=== PATIENT | male | born 1950 | race Caucasian/White ===

== ENCOUNTER 2017-10-22 08:14 | Emergency (ER) | payer OTHER ==
--- OUTSIDE RECORDS SUMMARY | 2017-10-22 08:16 | XMS REPORT | Clinical Summary ---
:1950 Author Organization [facility] Address [address] [place] [address] Phone Care Team Providers Name Role Phone Unavailable Primary Care Provider Unavailable Allergies No Known Allergies Current Medications Prescription Sig. Disp. Refills Start Date End Date Status insulin glargine Inject 22 Units Active (LANTUS SOLOSTAR) 100 subcutaneously 2 unit/mL (3 mL) InPn (two) times daily 22 units AM; 20 units HS. metoclopramide HCl Take 10 mg by mouth 4 Active (REGLAN) 10 MG tablet (four) times daily after meals and nightly. cyclobenzaprine Take 10 mg by mouth 2 Active (FLEXERIL) 10 MG tablet (two) times daily as needed for Muscle spasms. HYDROcodone-ibuprofen Take 1 tablet by Active (VICOPROFEN) 7.5-200 mg mouth every 12 per tablet (twelve) hours as needed for Pain. Active Problems Not on file Social History Tobacco Use Types Packs/Day Years Used Date Never Smoker Alcohol Use Drinks/Week oz/Week Comments No Sex Assigned at Date Recorded Not on file Last Filed Vital Signs Not on file Plan of Treatment Not on file Results Not on fileafter 10/21/2016
--- OUTSIDE RECORDS SUMMARY | 2017-10-22 08:16 | XMS REPORT | Clinical Summary ---
:1950 Author Organization [facility] Address [address] [place] [address] Care Team Providers Name Role Phone Shaka Lucas MD Primary Care Provider Allergies Active Allergy Reactions Severity Noted Date Comments Metronidazole Other (See Comments) Medium 08/07/2017 seizure Current Medications Prescription Sig. Disp. Refills Start Date End Date Status omeprazole (PriLOSEC) Take 20 mg by Active 20 MG capsule mouth 2 (two) times a day. aspirin (ECOTRIN) 81 Take 81 mg by Active MG enteric coated mouth daily. tablet multivitamin with Take 1 tablet Active iron (ONE DAILY by mouth MULTI-VIT W-MINERAL) daily. tablet insulin GLARGINE Inject 18 07/20/2016 Active (LANTUS SOLOSTAR) 100 Units under unit/mL injection the skin (pen) nightly. For BS >150 mg/dl promethazine Take 25 mg by Active (PHENERGAN) 25 MG mouth every 6 tablet (six) hours as needed for nausea or vomiting. ibuprofen Take 200 mg Active (ADVIL,MOTRIN) 200 MG by mouth tablet every 6 (six) hours as needed for mild pain. gabapentin Take 300 mg Discontinued (NEURONTIN) 300 mg by mouth 2 8 capsule (two) times a day. fentaNYL (DURAGESIC) Place 1 patch Discontinued 25 mcg/hr on the skin 8 every third day. HYDROcodone-acetamino Take 0.5 Discontinued phen (NORCO) 7.5-325 tablets by 8 mg per tablet mouth every 6 (six) hours as needed for moderate pain. zolpidem (AMBIEN) 10 Take 10 mg by Discontinued mg tablet mouth nightly 8 as needed for sleep. meclizine (ANTIVERT) Take 25 mg by Discontinued 25 mg tablet mouth 3 8 (three) times a day as needed for dizziness. cyclobenzaprine Take 10 mg by Discontinued (FLEXERIL) 10 mg mouth 3 8 tablet (three) times a day as needed for muscle spasms. cetirizine (ZyrTEC) 5 Take 5 mg by Discontinued MG tablet mouth daily. 8 megestrol (MEGACE) Take 10 mL 600 mL 0 08/11/2017 400 mg/10 mL (10 mL) (400 mg 8 suspension total) by mouth 2 (two) times a day for 30 days. amoxicillin-pot 08/25/2017 Discontinued clavulanate 8 (AUGMENTIN) 875-125 mg per tablet traMADol (ULTRAM) 50 Take 50 mg by Discontinued mg tablet mouth. 8 NEBIVOLOL Take 5-80 mg Discontinued HCL/VALSARTAN by mouth. 8 (BYVALSON ORAL) amLODIPine (NORVASC) 07/14/2017 Discontinued 5 mg tablet 8 HYDROcodone-acetamino 08/17/2017 Discontinued phen (NORCO) 10-325 8 mg per tablet metOLazone 07/15/2017 Discontinued (ZAROXOLYN) 5 MG 8 tablet ondansetron ODT Does not take 08/19/2017 Discontinued (ZOFRAN-ODT) 8 MG this at home 8 disintegrating tablet cyclobenzaprine Take 10 mg by Discontinued (FLEXERIL) 10 mg mouth 2 (two) 8 tablet times a day. gabapentin Take 1 60 capsule 0 09/08/2017 (NEURONTIN) 100 mg capsule (100 8 capsule mg total) by mouth 2 (two) times a day for 30 days. lactobacillus Take 2 60 each 0 09/09/2017 [id number] capsules by 8 mnosus (BIO K PLUS) mouth daily 50 billion cell for 30 days. capsule capsule valsartan (DIOVAN) 80 Take 1 tablet 30 tablet 0 09/09/2017 MG tablet (80 mg total) 8 by mouth daily for 30 days. QUEtiapine (SEROquel) Take 0.5 09/08/2017 Discontinued 25 MG tablet tablets (12.5 8 mg total) by mouth nightly as needed (insomnia) for up to 30 days. nebivolol (BYSTOLIC) Take 1 tablet 30 tablet 0 09/09/2017 5 MG tablet (5 mg total) 8 by mouth daily for 30 days. docusate (COLACE) 50 Take 5 mL (50 09/09/2017 mg/5 mL liquid mg total) by 8 mouth daily for 30 days. lactulose 20 gram/30 Take 15 mL 09/08/2017 mL solution (10 g total) 8 by mouth daily as needed (constipation ) for up to 30 days. fluconazole Take 1 tablet 7 tablet 0 09/20/2017 (DIFLUCAN) 200 MG (200 mg 8 tablet total) by mouth daily for 7 days. acetaminophen-codeine Take 1 tablet 20 tablet 0 09/19/2017 (TYLENOL WITH CODEINE by mouth 8 #3) 300-30 mg per every 6 (six) tablet hours as needed for moderate pain for up to 20 doses. megestrol (MEGACE) Take 10 mL 300 mL 0 09/19/2017 400 mg/10 mL (40 (400 mg 8 mg/mL) suspension total) by mouth daily for 30 days. Active Problems Problem Noted Date Dehydration 08/31/2017 Acute renal failure 08/07/2017 Encounters Date Type Specialty Care Team Description 09/16/2017 - Emergency General Internal Katlyn Forrest Dehydration ( Primary Dx); 09/19/2017 Medicine Emilia PETTY MD Other elevated white blood cell (WBC) count Anibal Tomlinson MD 09/04/2017 Anesthesia Event General Surgery Rianna Aden MD 09/04/2017 Procedure Pass General Surgery 09/04/2017 Surgery General Surgery Marielle, PORT A CATHETER Isaac Liu MD PLACEMENT RIGHT SUBCLAVIAN WITH FLUROSCOPY 09/03/2017 Procedure Pass General Surgery 08/31/2017 - Hospital Encounter General Internal Nicholas Jernigan, Dehydration (Primary Dx); 09/08/2017 Medicine Altered mental status, unspecified altered mental status type Brittani Lamar MD 08/27/2017 Pre-Admit Testing Pre-Admission Oppermann, Appointment Testing Isaac Liu MD 08/27/2017 Office Visit General Surgery Oppermann, Malignant neoplasm Isaac Liu MD of pancreas, unspecified location of malignancy (Primary Dx) 08/07/2017 - Hospital Encounter General Internal Dalal, Acute renal failure, unspecified acute renal failure type (Primary Dx); 08/11/2017 Medicine Juan Carlos Josh, Dehydration; DO Leukocytosis, unspecified type Sd Pagan MD Mathivanan, Vidya, MD after 10/21/2016 Family History Medical History Relation Name Comments Cancer Father Cancer Mother No Known Problems Sister Relation Name Status Comments Father Mother Sister Alive Social History Tobacco Use Types Packs/Day Years Used Date Never Smoker Smokeless Tobacco: Never Used Chew Alcohol Use Drinks/Week oz/Week Comments No Sex Assigned at Date Recorded Not on file Last Filed Vital Signs Vital Sign Reading Time Taken Blood Pressure 191/97 09/19/2017 12:27 PM SENIOR TECHNICAL RECRUITER Pulse 79 09/19/2017 12:27 PM SENIOR TECHNICAL RECRUITER Temperature 36.4 C (97.6 F) 09/19/2017 12:27 PM SENIOR TECHNICAL RECRUITER Respiratory Rate 17 09/19/2017 12:27 PM SENIOR TECHNICAL RECRUITER Oxygen Saturation 98% 09/19/2017 12:27 PM SENIOR TECHNICAL RECRUITER Inhaled Oxygen Concentration - - Weight 65.3 kg (144 lb) 09/17/2017 1:00 AM SENIOR TECHNICAL RECRUITER Height 162.6 cm (5' 4") 09/17/2017 1:00 AM SENIOR TECHNICAL RECRUITER Body Mass Index 24.72 09/17/2017 1:00 AM SENIOR TECHNICAL RECRUITER Plan of Treatment Health Maintenance Due Date Last Done Comments COLONOSCOPY 2000 ZOSTER VACCINE 2010 PNEUMOCOCCAL POLYSACCHARIDE VACCINE AGE 65 AND OVER 10/13/2015 PNEUMOCOCCAL-13 10/13/2015 INFLUENZA VACCINE 02/10/2018 Implants Implanted Type Area Agriculture Mechanic Device Expiration Model / Identifier Date Serial / Lot Port Accs Vortex Tr Vasclr Sgl Atchd 9.6fr Cath Plastic - [id number] Surgical N/A: N/A ANGIODYNAMICS 05/12/2022 SPAX 16 I / Implanted: 09/04/2017 (Quantity not on file) Implants; INC / Expanders; [id number] Extenders; Surgical Wires Procedures Procedure Name Priority Date/Time Associated Diagnosis Comments MS AN ELECTIVE Routine 09/04/2017 10:48 AM SUPRAGLOTTIC AIRWAY SENIOR TECHNICAL RECRUITER Procedure Note - Rianna Aden MD - 09/04/2017 10:48 AM SENIOR TECHNICAL RECRUITER Airway Date/Time: 09/04/2017 10:32 AM Performed by: RIANNA ADEN Authorized by: RIANNA ADEN Location: OR Urgency: Elective Difficult Airway: No Anesthesiologist: EMILIE MANN Performed by: anesthesiologist Preoxygenated with 100% O2: Yes C-spine Precautions Maintained Throughout: Yes Mask Ventilation: Not attempted Final Airway Type: Supraglottic airway Final LMA: I-Gel LMA Size: 4 Number of Attempts at Approach: 1 ECHOCARDIOGRAM 2D COMPLETE W Routine 08/08/2017 4:25 PM SENIOR TECHNICAL RECRUITER Results for this MMODE SPECTRAL COLOR DOPPLER procedure are in the (14397) results section. after 10/21/2016 Results POC glucose (09/19/2017 12:30 PM)Only the most recent of56 resultswithin the time period is included. Component Value Ref Range POC glucose 119 (H) 65 - 99 mg/dL Comment: RN Notified Meter ID: [id number] Railroad Conductor: Iliana Castillo Specimen Performing Laboratory [facility] DEPARTMENT OF PATHOLOGY AND [facility] MEDICINE [address] [place] [address] Smear review (09/19/2017 6:40 AM)Only the most recent of9 resultswithin the time period is included. Component Value Ref Range Platelet slide review Leonor adequate Anisocytosis Moderate Polychromasia Moderate Schistocytes Occasional Ovalocytes Moderate Specimen Performing Laboratory [facility] DEPARTMENT OF PATHOLOGY AND GENOMIC MEDICINE [address] [place] [phone] Estimated GFR (09/19/2017 6:40 AM)Only the most recent of15 resultswithin the time period is included. Component Value Ref Range GFR Non Af Amer 75 mL/min/1.73 m2 GFR Af Amer >90 mL/min/1.73 m2 Comment: Chronic kidney disease: <60 mL/min/1.73m2 Kidney failure: <15 mL/min/1.73m2 The estimated GFR is calculated from the IDMS-traceable Modification of Diet in Renal Disease Equation. The accuracy of the calculation is poor when the creatinine is normal. Calculated values >90 mL/min/1.73m2 are not reported. This equation has not been validated in children (<18 years), women, the elderly (>70 years), or ethnic groups other than Caucasians and Americans. Specimen Performing Laboratory Plasma specimen [facility] DEPARTMENT OF PATHOLOGY AND [place] [id number] CBC with platelet and differential (09/19/2017 6:40 AM)Only the most recent of16 resultswithin the time period is included. Component Value Ref Range WBC 38.9 (H) 4.5 - 11.0 k/uL RBC 2.83 (L) 4.40 - 6.00 m/uL HGB 8.7 (L) 14.0 - 18.0 g/dL HCT 27.2 (L) 41.0 - 51.0 % MCV 96.1 82.0 - 100.0 fL MCH 30.7 27.0 - 34.0 pg MCHC 32.0 31.0 - 37.0 g/dL RDW - SD 62.1 (H) 37.0 - 55.0 fL MPV 12.5 (H) 6.9 - 11.0 fL Platelet count 163 150 - 400 K/uL Nucleated RBC 0.00 /100 WBC Neutrophils 74.2 (H) 39.0 - 69.0 % Lymphocytes 10.3 (L) 25.0 - 45.0 % Monocytes 5.1 0.0 - 10.0 % Eosinophils 7.8 (H) 0.0 - 5.0 % Basophils 0.4 0.0 - 1.0 % Immature granulocytes 2.2 (H) 0.0 - 1.0 % Specimen Performing Laboratory Blood [facility] DEPARTMENT OF PATHOLOGY AND GENOMIC MEDICINE [address] [place] [address] Ammonia level (09/19/2017 6:40 AM)Only the most recent of2 resultswithin the time period is included. Component Value Ref Range Ammonia 48 16 - 60 umol/L Specimen Performing Laboratory Plasma specimen [facility] DEPARTMENT OF PATHOLOGY AND GENOMIC MEDICINE [address] [place] [address] Basic metabolic panel (09/19/2017 6:40 AM)Only the most recent of11 resultswithin the time period is included. Component Value Ref Range Sodium 146 135 - 148 mEq/L Potassium 3.5 3.5 - 5.0 mEq/L Chloride 114 (H) 98 - 112 mEq/L CO2 17 (L) 24 - 31 mEq/L Anion gap 15 7 - 15 mEq/L Comment: Starting from October , anion gap calculation no longer incorporates potassium. Please note the change. BUN 16 8 - 23 mg/dL Creatinine 1.0 0.7 - 1.2 mg/dL Glucose 124 (H) 65 - 99 mg/dL Calcium 8.3 (L) 8.8 - 10.2 mg/dL Specimen Performing Laboratory Plasma specimen [facility] DEPARTMENT OF PATHOLOGY AND GENOMIC MEDICINE [address] [place] [address] CT Head Wo Contrast (09/17/2017 10:58 AM)Only the most recent of2 resultswithin the time period is included. Specimen Performing Laboratory [facility] [address] [place] [address] Narrative EXAMINATION:CT HEAD WO CONTRAST CT IMAGING WAS PERFORMED WITH ITERATIVE RECONSTRUCTION TECHNIQUE AND/OR AUTOMATED EXPOSURE CONTROL TO REDUCE RADIATION DOSE. CLINICAL HISTORY:confusion COMPARISON:CT brain August 31, 2017. FINDINGS: 1.There is no acute abnormality demonstrated. Specifically there is no hemorrhage, mass effect or acute infarction. 2. There is chronic lacunar infarction in the genu of the internal capsule and garner radiata region on the right. There are otherwise minimal nonspecific cerebral white matter microvascular changes. 3.There is vague cortical hypodensity in the parasagittal left parietal lobe seen on the prior study. This is not present on current examination suggesting a resolved reversible cortical insult. 4.There is mild cerebral cortical volume loss. 5.There are minimal atherosclerotic calcifications in the distal internal carotid arteries. 6.There is mild mucosal thickening/mucus in the ethmoid sinus and to a lesser degree maxillary and sphenoid sinuses. IMPRESSION: Minimal chronic ischemic changes, microvascular changes and volume loss without evidence of an abnormality. A small cortical hypodensity in the parasagittal left parietal lobe seen on the prior study has resolved. There is otherwise no significant interval change. [facility]-[id number] Procedure Note Interface, Radiology Results Incoming - 09/17/2017 11:11 AM SENIOR TECHNICAL RECRUITER EXAMINATION: CT HEAD WO CONTRAST CT IMAGING WAS PERFORMED WITH ITERATIVE RECONSTRUCTION TECHNIQUE AND/OR AUTOMATED EXPOSURE CONTROL TO REDUCE RADIATION DOSE. CLINICAL HISTORY: confusion COMPARISON: CT brain August 31, 2017. FINDINGS: 1. There is no acute abnormality demonstrated. Specifically there is no hemorrhage, mass effect or acute infarction. 2. There is chronic lacunar infarction in the genu of the internal capsule and garner radiata region on the right. There are otherwise minimal nonspecific cerebral white matter microvascular changes. 3. There is vague cortical hypodensity in the parasagittal left parietal lobe seen on the prior study. This is not present on current examination suggesting a resolved reversible cortical insult. 4. There is mild cerebral cortical volume loss. 5. There are minimal atherosclerotic calcifications in the distal internal carotid arteries. 6. There is mild mucosal thickening/mucus in the ethmoid sinus and to a lesser degree maxillary and sphenoid sinuses. IMPRESSION: Minimal chronic ischemic changes, microvascular changes and volume loss without evidence of an abnormality. A small cortical hypodensity in the parasagittal left parietal lobe seen on the prior study has resolved. There is otherwise no significant interval change. [facility]-[id number] Troponin (09/17/2017 7:55 AM)Only the most recent of8 resultswithin the time period is included. Component Value Ref Range Troponin <0.30 0.00 - 0.30 ng/mL Comment: 0.11 - 1.49 ng/mlMay indicate increased risk of acute coronary syndrome. >=1.5 ng/mlConsistent with acute myocardial infarction. The diagnostic value of a single normal or non-diagnostic result is questionable.Serial samples at 2-6 hour intervals are required to rule out acute myocardial injury. Specimen Performing Laboratory Plasma specimen [facility] DEPARTMENT OF PATHOLOGY AND GENOMIC MEDICINE [address] [place] [address] ECG 12 lead (09/17/2017 5:14 AM)Only the most recent of3 resultswithin the time period is included. Component Value Ref Range Ventricular rate 93 Atrial rate 279 QRSD interval 84 QT interval 430 QTC interval 534 P axis 1 81 QRS axis 1 81 T wave axis 80 EKG impression Normal sinus rhythm-T wave abnormality, consider anterior ischemia-Prolonged QT-Abnormal ECG-In automated comparison with ECG of 2017 20:18,-Atrial flutter has replaced Sinus rhythm-T wave inversion more evident in Anterior leads-QT has lengthened- 12: 06:06 PM Specimen Performing Laboratory [facility] MUSE [address] [place] [address] Lactic acid level (09/17/2017 4:20 AM)Only the most recent of4 resultswithin the time period is included. Component Value Ref Range Lactic acid 1.5 0.5 - 2.2 mmol/L Specimen Performing Laboratory Plasma specimen [facility] DEPARTMENT OF PATHOLOGY AND GENOMIC MEDICINE [address] [place] [address] Comprehensive metabolic panel (09/17/2017 4:20 AM)Only the most recent of4 resultswithin the time period is included. Component Value Ref Range Sodium 145 135 - 148 mEq/L Potassium 4.0 3.5 - 5.0 mEq/L Chloride 111 98 - 112 mEq/L CO2 20 (L) 24 - 31 mEq/L Anion gap 14 7 - 15 mEq/L Comment: Starting from October , anion gap calculation no longer incorporates potassium. Please note the change. BUN 17 8 - 23 mg/dL Creatinine 1.0 0.7 - 1.2 mg/dL Glucose 119 (H) 65 - 99 mg/dL Calcium 8.8 8.8 - 10.2 mg/dL Protein 5.8 (L) 6.3 - 8.3 g/dL Albumin 2.6 (L) 3.5 - 5.0 g/dL A/G ratio 0.8 0.7 - 3.8 Alkaline phosphatase 180 (H) 40 - 129 U/L AST 14 10 - 50 U/L ALT 10 5 - 50 U/L Total bilirubin 1.2 0.2 - 1.2 mg/dL Specimen Performing Laboratory Plasma specimen [facility] DEPARTMENT OF PATHOLOGY AND GENOMIC MEDICINE [address] [place], [place] [address] Urinalysis screen and microscopy, with reflex to culture (09/17/2017 3:50 AM) Only the most recent of3 resultswithin the time period is included. Component Value Ref Range Specimen site Clean catch Color, UA Yellow Appearance, UA Clear Specific gravity, UA 1.015 1.001 - 1.030 pH, UA 5.0 5.0 - 9.0 Protein, UA 2+ (A) Negative Glucose, UA Negative Negative Ketones, UA Trace (A) Negative Bilirubin, UA Negative Negative Blood, UA Small (A) Negative Nitrite, UA Negative Negative Urobilinogen, UA 2.0 (A) <2.0 E.U./dL Leukocyte esterase, UA Negative Negative Epithelial cells, UA <1 /HPF Round epithelial cells, UA <1 0 - 5 /HPF WBC, UA 5 (H) 0 - 1 /HPF RBC, UA 7 (H) 0 - 1 /HPF Bacteria, UA None seen None seen Yeast, UA Few (A) Yeast with pseudohyphae, UA None seen Specimen Performing Laboratory Urine [facility] DEPARTMENT OF PATHOLOGY AND GENOMIC MEDICINE [address] [place] [address] Gram stain (09/17/2017 3:50 AM)Only the most recent of3 resultswithin the time period is included. Component Value Ref Range Gram stain result Occasional WBC's Moderate Budding yeast, pseudohyphae present Comment: Specimen Information Specimen Source: Urine Specimen Site: Clean catch Specimen Performing Laboratory Urine [facility] DEPARTMENT OF PATHOLOGY AND GENOMIC MEDICINE [address] [place] [address] Urine culture (09/17/2017 3:50 AM)Only the most recent of3 resultswithin the time period is included. Component Value Ref Range Urine culture isolate Nora albicans 10-5 cfu/ml The performance characteristics of this assay on this isolate were validated by the Microbiology Laboratory at [facility].This source has not been approved by the U.S. Food and Drug Administration.The results are not intended to be used as the sole means for clinical diagnosis or patient management.The Microbiology Laboratory is authorized under the clinical Laboratory Improvement Amendments of 1988 (CLIA-88) to perform high complexity testing. (A) Comment: Specimen Information Specimen Source: Urine Specimen Site: Clean catch Specimen Performing Laboratory Urine [facility] DEPARTMENT OF PATHOLOGY AND GENOMIC MEDICINE [address] [place] [address] Blood culture, aerobic & anaerobic (09/17/2017 1:20 AM)Only the most recent of4 resultswithin the time period is included. Component Value Ref Range Blood culture isolate No growth after 5 days of incubation. Comment: Specimen Information Specimen Source: Blood Specimen Site: Antecubital, right Specimen Performing Laboratory Blood - Antecubital, right [facility] DEPARTMENT OF PATHOLOGY AND GENOMIC MEDICINE [address] [place] [address] Lactic acid level, SEPSIS - Now and repeat 2x every 3 hours (09/17/2017)Only the most recent of8 resultswithin the time period is included. Component Value Ref Range Lactic acid 1.8 0.5 - 2.2 mmol/L Specimen Performing Laboratory Plasma specimen [facility] DEPARTMENT OF PATHOLOGY AND GENOMIC MEDICINE [address] [place] [address] XR Chest 1 Vw Portable (09/16/2017 11:53 PM)Only the most recent of4 resultswithin the time period is included. Specimen Performing Laboratory [facility] [address] [place] [address] Narrative Examination:XR CHEST 1 VW PORTABLE Clinical History:Fever Comparison: 09/04/2017 Technique: Single frontal view of the chest is obtained. Findings: Cardiomegaly with pulmonary vascular congestion are noted. Tip of the right central line is at the distal SVC. No pleural effusion is seen. No pneumothorax is seen. Impression: Cardiomegaly with pulmonary vascular congestion. [facility]-[id number] Procedure Note Interface, Radiology Results Incoming - 09/17/2017 12:01 AM SENIOR TECHNICAL RECRUITER Examination: XR CHEST 1 VW PORTABLE Clinical History: Fever Comparison: 09/04/2017 Technique: Single frontal view of the chest is obtained. Findings: Cardiomegaly with pulmonary vascular congestion are noted. Tip of the right central line is at the distal SVC. No pleural effusion is seen. No pneumothorax is seen. Impression: Cardiomegaly with pulmonary vascular congestion. [facility]-[id number] Partial thromboplastin time, activated (09/16/2017 9:05 PM)Only the most recent of2 resultswithin the time period is included. Component Value Ref Range PTT 35.0 23.0 - 36.0 sec Comment: PTT therapeutic range for unfractionated heparin is 61.0-112.0 seconds which corresponds to Anti-Xa 0.3-0.7 U/ml. Specimen Performing Laboratory Blood [facility] DEPARTMENT OF PATHOLOGY AND GENOMIC MEDICINE [address] [place] [address] Prothrombin time with INR (09/16/2017 9:05 PM)Only the most recent of4 resultswithin the time period is included. Component Value Ref Range Prothrombin time 16.5 (H) 12.0 - 15.0 sec INR 1.3 Comment: The International Normalized Ratio (INR) is a therapeutic monitoring tool for patients who are stable on oral anticoagulant therapy. An INR of 2.0-3.0 is suggested for deep vein thrombosis/pulmonary embolism. Specimen Performing Laboratory Blood [facility] DEPARTMENT OF PATHOLOGY AND GENOMIC MEDICINE [address] [place] [address] Phosphorus level (09/16/2017 9:05 PM) Component Value Ref Range Phosphorus 2.8 2.4 - 4.5 mg/dL Specimen Performing Laboratory Plasma specimen [facility] DEPARTMENT OF PATHOLOGY AND GENOMIC MEDICINE [address] [place] [address] Magnesium level (09/16/2017 9:05 PM) Component Value Ref Range Magnesium 1.8 1.6 - 2.4 mg/dL Specimen Performing Laboratory Plasma specimen [facility] DEPARTMENT OF PATHOLOGY AND GENOMIC MEDICINE [address] [place] [address] Lipase level (09/16/2017 9:05 PM)Only the most recent of2 resultswithin the time period is included. Component Value Ref Range Lipase 10 (L) 13 - 60 U/L Specimen Performing Laboratory Plasma specimen [facility] DEPARTMENT OF PATHOLOGY AND GENOMIC MEDICINE [address] [place] [address] Amylase level (09/16/2017 9:05 PM) Component Value Ref Range Amylase 9 13 - 73 U/L Specimen Performing Laboratory Plasma specimen [facility] DEPARTMENT OF PATHOLOGY AND GENOMIC MEDICINE [address] [place] [address] ECG ED Preliminary Interpretation - NOT AN ORDER (09/16/2017 8:16 PM)Only the most recent of2 resultswithin the time period is included. Jose Forrest III, MD 09/17/20173:38 PM ECG ED Preliminary Interpretation - Not an Order Performed by: KATLYN FORREST III Authorized by: KATLYN FORREST III ECG reviewed by ED Physician in the absence of a veterinarian small animal: yes Interpretation: Interpretation: abnormal Rate: ECG rate:86 ECG rate assessment: normal Rhythm: Rhythm: sinus rhythm Ectopy: Ectopy: PVCs PVCs:Infrequent and unifocal QRS: QRS axis:Normal QRS intervals:Normal Conduction: Conduction: normal ST segments: ST segments:Non-specific Vancomycin level, trough (09/06/2017 10:50 AM)Only the most recent of2 resultswithin the time period is included. Component Value Ref Range Vancomycin, trough 19.7 10.0 - 20.0 ug/mL Comment: Therapeutic Ranges: Peak30.0 - 40.0 ug/mL Nclngc25.0 - 20.0 ug/mL Specimen Performing Laboratory Blood [facility] DEPARTMENT OF PATHOLOGY AND GENOMIC MEDICINE [address] [place] [address] US Soft Tissue Head Neck (09/05/2017 3:06 PM) Specimen Performing Laboratory [address] [address] Narrative EXAMINATION:US SOFT TISSUE HEAD NECK CLINICAL HISTORY:Knot on left side of neck COMPARISON:None. IMPRESSION: 1.Ultrasound was performed in the area of right portacatheter entry in an area of swelling. No mass or fluid collection is seen. [facility]-[id number] Procedure Note Interface, Radiology Results Incoming - 09/05/2017 3:51 PM SENIOR TECHNICAL RECRUITER EXAMINATION: US SOFT TISSUE HEAD NECK CLINICAL HISTORY: Knot on left side of neck COMPARISON: None. IMPRESSION: 1. Ultrasound was performed in the area of right portacatheter entry in an area of swelling. No mass or fluid collection is seen. [facility]-[id number] OR [place] > I Hour (09/04/2017 11:21 AM) Specimen Performing Laboratory [address] [address] Narrative EXAMINATION:OR [place] 1 HOUR CLINICAL HISTORY:Right chest port placement IMPRESSION: Fluoroscopy was provided. No radiologist present.Please see procedure report for discussion of procedure, findings and fluoroscopic time. [facility]-[id number] Procedure Note Interface, Radiology Results Incoming - 09/04/2017 11:38 AM SENIOR TECHNICAL RECRUITER EXAMINATION: OR FL 1 HOUR CLINICAL HISTORY: Right chest port placement IMPRESSION: Fluoroscopy was provided. No radiologist present. Please see procedure report for discussion of procedure, findings and fluoroscopic time. [facility]-[id number] Type and screen (09/03/2017 2:15 AM) Component Value Ref Range ABO grouping A Rh type POS Antibody screen (gel) NEG Specimen Performing Laboratory Blood [facility] DEPARTMENT OF PATHOLOGY AND GENOMIC MEDICINE [address] [place] [id number] Prealbumin level (09/02/2017 5:40 AM) Component Value Ref Range Prealbumin 5 (L) 16 - 32 mg/dL Specimen Performing Laboratory Serum [facility] DEPARTMENT OF PATHOLOGY AND GENOMIC MEDICINE [address] [place] [id number] Consult to Sepsis Response Team (09/01/2017 5:42 PM) Narrative Jax Amaral, ARMIDA-Juan 09/01/20175:53 PM Pt is a 66 year old cachetic male with hx of pancreatic cancer who over the past week has slowly mentally worsened.He became more confused and was told to bring the pt to ER 08/31 per his oncologist. V/sT 97.4P 103R 20496/78Sao2 97% Heent:Normocephalic currently sleeping Heart:S1S2 no gmr abd Soft non tender flatSluggish bowel sounds Ext No CCE Moves spontaneously,Pulses positive A/P 1 - pancreatic cancer - plan for insertion of portacath and to start chemotherapy Dr. Coleman is oncology 2 - Pain - fentanyl patch New one applied today Pre pt sleeps the day away when new patch applied She feels his change in mentation is secondary to fentanyl patche Was discontinued 3 - leukocytosis - Ua is negative Blood cx are pending Receiving vancomycin and cefepime 4 - dehydration secondary to poor intake - received 2 L NS in ER Now with NS at 100 cc/hr When awakens start encouraging fluids This is not sepsis. MDs are aware of pts condition and leukocytosis Continue with current plan Sepsis Clinical Assessment Performed by: JAX AMARAL Authorized by: JAX AMARAL Sepsis Clinical Assessment General Assessment Information Current sepsis score:5 If score does not worsen, snooze alerts until:09/02/2017 04:42 SENIOR TECHNICAL RECRUITER SIRS Criteria SIRS criteria met: Heart rate > 90 bpm and WBC > 12 K/mcL Sepsis Assessment Clinical suspicion of infection? No Clinical suspicion of sepsis?: No Sepsis protocol started?No Clinical disposition:Remain in room Sepsis Related Vitals Heart rate: 103 Temperature: 97.4 F Respiratory rate: 18 Blood pressure: 136/78 Altered mental status: WBC (k/uL) Date Value 09/01/2017 40.3 (HH) 08/31/2017 30.4 (H) Weight-Based Fluid Bolus Calculation The recommended weight-based bolus volume: 1,893 mL (dosing weight) Please refer to the MAR for actual med/fluid administrations. Echocardiogram complete w contrast and 3D if needed (08/08/2017 4:25 PM) Component Value Ref Range Ao Root Diameter 3.36 cm AoV Area, Vmax 3.03 cm2 AoV Area, VTI 3.46 cm2 AoV Mean PG 5.06 mmHg AoV Peak PG 8.92 mmHg AoV Vmax 1.49 m/s AoV VTI 0.28 m BSA Pereyra 0.00 m2 BSA 0.00 m2 IVS,d 0.99 0.6 - 1.2 cm IVS/LVPW,2D 0.94 Left Atrium Dimension Anterior 3.31 cm LA Area d A4C 14.21 cm2 LV,d 4.17 cm LV EF,2D 64.47 % LV,s 2.95 cm LVOT area 3.27 cm2 LVOT Diam,S 2.04 cm LVOT Vmax 1.38 m/s LVOT VTI 0.30 m LVPWD,d 1.06 cm PV Pk Grad 4.88 mmHg PV VMAX 1.10 m/s RVOT Vmax 0.81 m/s RVSP (TR) 17.02 mmHg TR Vpeak 1.84 mm/s MV E A ratio 0.85 mmHg TR pk grad 7.02 mmHg E wave decelartion time 292.71 msec MV Peak A Oneal 1.03 m/s MV valve area p 1/2 method 2.59 cm2 MV Peak E Oneal 0.87 m/s MV stenosis pressure 1/2 time 84.89 ms AV LVOT peak gradient 7.63 mmHg RVSP 17.02 mmHg Ao Root Diameter 3.36 cm LV SYS VOL 33.72 ml LV VENTURA VOL 77.33 ml LV SV Teich 2D 43.61 ml LV Vol s Teich PSAX 33.72 ml RVOT pk grad 2.60 mmHg BSA Haycock 0.00 m2 AoV Vmn 1.05 LV FS Teich 2D 29.18 MV AE ratio 1.18 LV FS Cube 2D 29.18 LVOT Vmn 0.97 Pt Size 0.00 Pt Wt 0.00 Aov area Vmn 3.03 cm2 LA Vol d MOD A4C 31.19 ml LVOT mean grad 4.32 mmHg MAX Pred HR 153.18 85 of MPHR 130.20 Calc MPHR 153.18 bpm LV SV Cube 2D 46.81 ml LV vol d cube 2D 72.60 ml LV vol s cube 2D 25.79 ml MV Decel slope 2.96 m/s2 Pred Exer Dur R1 7.66 Pred METS R1 7.98 Velocity Ratio (V1/V2) 0.93 m/s EF 56.39 % E/A ratio 0.84 Specimen Performing Laboratory [facility] [address] [place] [address] Narrative The left ventricle chamber size is normal. There is mild left ventricular concentric hypertrophy. Left Ventricular ejection fraction is 65 - 70%. No pericardial effusion Right ventricular size is normal. Trace mitral valve regurgitation mild mitral annular calcification. Spectral Doppler shows impaired relaxation pattern of left ventricular diastolic filling. B natriuretic peptide (08/07/2017 4:47 PM) Component Value Ref Range BNP 44 0 - 100 pg/mL Specimen Performing Laboratory Blood [facility] DEPARTMENT OF PATHOLOGY AND GENOMIC MEDICINE [address] [place] [address] Creatine kinase, total (CPK) (08/07/2017 4:47 PM) Component Value Ref Range Creatine kinase 17 (A) 39 - 308 U/L Specimen Performing Laboratory Plasma specimen [facility] DEPARTMENT OF PATHOLOGY AND GENOMIC MEDICINE [address] [place] [address] after 10/21/2016 Insurance Payer Benefit Plan / Group Subscriber ID Type Phone Address [facility] xxxxxxxxx O [phone] [place] [address]
[2017-10-22] MEDS ORDERED: NA CHLORIDE 0.9% 250 ML ONE (08:33)
[2017-10-22] MEDS ORDERED: PROMETHAZINE 25 MG/ML VIAL ONE (08:33)
--- NOTE | 2017-10-22 09:12 | RAD REPORT ---
EXAM DESCRIPTION: CT - Head Brain Wo Cont - 10/22/2017 8:58 am CLINICAL HISTORY: Syncope with slurred speech COMPARISON: February 2017 TECHNIQUE: Computed axial tomography of the head was obtained. IV contrast was not requested. All CT scans are performed using dose optimization technique as appropriate and may include automated exposure control or mA/KV adjustment according to patient size. FINDINGS: An intracranial bleed is not seen . The ventricles are normal in caliber. No extra-axial fluid collection is noted. Fluid within the sinuses/ mastoids is not seen. IMPRESSION: No acute intracranial abnormality is seen. If patient's symptoms persist MRI of the bra in would be recommended.
[2017-10-22 09:13] LABS: Absolute Lymphocytes (CBC) 2.8 K/uL (0.7-4.9); Absolute Monocytes 1.8 K/uL (0.1-1.3); Absolute Neutrophil 31.8 K/uL (1.8-8.0); Basophils % 0.4 % (0-1.3); Eosinophils % 4.8 % (0-4.4); Hematocrit 30.4 % (39.6-49.0); Lymphocytes % 7.2 % (15.3-44.8); MCH 29.6 pg (27.0-35.0); MCV 98.4 fL (80-100); MPV 11.6 fL (7.6-11.3); Monocytes % 4.6 % (3.3-12.3); RBC Red Blood Cell Count 3.09 M/uL (4.33-5.43)
[2017-10-22 09:17] LABS: Albumin 2.3 g/dL (3.2-5.5); Bilirubin Direct 0.7 mg/dL (0-0.2); Bilirubin Total 1.8 mg/dL (0.3-1.2); Magnesium 2.3 mg/dL (1.8-2.5); Protein, Total 5.7 g/dL (6.0-8.3)
[2017-10-22 09:19] LABS: Potassium 4.8 mEq/L (3.6-5.0)
[2017-10-22 09:32] LABS: Protime INR 1.84
[2017-10-22 10:05] LABS: Anisocytosis 1+; Blood Morphology Comment NOTED (NOT SEEN); Platelet Estimate ADEQ; Poikilocytosis 1+; Toxic Granulation 1+
--- NOTE | 2017-10-22 10:33 | RAD REPORT ---
EXAM DESCRIPTION: RAD - Chest Single View - 10/22/2017 9:39 am CLINICAL HISTORY: Fall, slurred speech, syncope, history of pancreatic carcinoma COMPARISON: April 2017 TECHNIQUE: AP portable chest image was obtained 0932 hours . FINDINGS: No large mass, infiltrate or focal lung parenchymal process. Lung markings are not signifi cantly different from comparison. Heart and vasculature are normal. No measurable pleural effusion an d no pneumothorax. No gross bony abnormality seen. No acute aortic finding. Right-sided Port-A-Cath i s in place. No free air under the diaphragm. No significant or worrisome change from comparison. IMPRESSION: No acute cardiopulmonary process.
[2017-10-22 10:52] LABS: Arterial Blood Carboxyhemoglob 1.4 % (0-1.5); Blood Gas Oxyhemoglobin 94.9 % (94-97); Blood O2 Saturation 96.8 % (92-98.5)
--- NOTE | 2017-10-22 11:20 | EDPHYS ---
Physician Documentation [facility] Name: Dominic Marti Age: 67 yrs Sex: Male : 1950 Arrival Date: 10/22/2017 Time: 08:16 Bed 3 Private MD: ED Physician Nehemias Anaya HPI: 10/22 08:33 This 67 yrs old Male presents to ER via EMS with complaints of syncope. nh 08:33 The patient has experienced syncope, became unresponsive, per EMS, called to house by wa for fall at 0300 hrs. EMS arrived and helped pt to walker. pt became unresponsive with sonorous respirations. EMS denies observing seizure activity. pt awoke and became responsive and was conversant immediately without slurred speech or lateralizing neuro deficits. pt denies pain in ED. noted occasionally yawning. BG in the field 268. Onset: The symptoms/episode began/occurred just prior to arrival. Duration: This was a single episode, that lasted 20 minute(s). Context: the episode(s) was witnessed, by EMS personnel, occurred at home, occurred while the patient was standing, Just prior to the episode the patient experienced had just had a fall. Associated injury: The patient did not suffer any apparent associated injury. Associated signs and symptoms: Pertinent positives: vomiting, in route to ER, Pertinent negatives: abdominal pain, chest pain, diarrhea, headache. Current symptoms: Currently, the patient is not experiencing any symptoms. It is unknown whether or not the patient has had similar symptoms in the past. The patient has not recently seen a physician. 08:39 Context: h/o liver and pancreatic CA. on norco 10/325mg and also phenergan 25mg. nh Historical: - Allergies: 08:29 Flagyl; ph - Home Meds: 08:29 aspirin 81 mg Oral chew 1 tab once daily [Active]; Chemo drug three times a month ph [Active]; Levemir 100 unit/mL subcutaneous soln 10 unit nightly [Active]; promethazine 25 mg Oral tab 1 tab every 8 hours [Active]; hydrocodone-acetaminophen 10-325 mg Oral tab 1 tab every 6 hours [Active]; nebivolol \T\ valsartan 5mg/80mg daily [Active]; - Immunization history:: Adult Immunizations unknown. - Social history:: Smoking status: Patient/guardian denies using tobacco. - Family history:: not pertinent. - Hospitalizations: : No recent hospitalization is reported. - History obtained from: EMS. ROS: 08:41 Constitutional: Negative for fever, chills, and weight loss, Eyes: Negative for injury, wa pain, redness, and discharge, ENT: Negative for injury, pain, and discharge, Neck: Negative for injury, pain, and swelling, Cardiovascular: Negative for chest pain, palpitations, and edema, Respiratory: Negative for shortness of breath, cough, wheezing, and pleuritic chest pain, Abdomen/GI: Negative for abdominal pain, nausea, vomiting, diarrhea, and constipation, Back: Negative for injury and pain, : Negative for injury, bleeding, discharge, and swelling, MS/Extremity: Negative for injury and deformity, Skin: Negative for injury, rash, and discoloration. 08:41 Neuro: Positive for syncope, Negative for headache, speech changes. 08:41 All other systems are negative. Exam: 08:41 Head/Face: Normocephalic, atraumatic. Eyes: Pupils equal round and reactive to light, wa extra-ocular motions intact. Lids and lashes normal. Conjunctiva and sclera are non-icteric and not injected. Cornea within normal limits. Periorbital areas with no swelling, redness, or edema. ENT: Nares patent. No nasal discharge, no septal abnormalities noted. Tympanic membranes are normal and external auditory canals are clear. Oropharynx with no redness, swelling, or masses, exudates, or evidence of obstruction, uvula midline. Mucous membranes moist. Neck: Trachea midline, no thyromegaly or masses palpated, and no cervical lymphadenopathy. Supple, full range of motion without nuchal rigidity, or vertebral point tenderness. No Meningismus. Cardiovascular: Regular rate and rhythm with a normal S1 and S2. No gallops, murmurs, or rubs. Normal PMI, no JVD. No pulse deficits. Respiratory: Lungs have equal breath sounds bilaterally, clear to auscultation and percussion. No rales, rhonchi or wheezes noted. No increased work of breathing, no retractions or nasal flaring. Back: No spinal tenderness. No costovertebral tenderness. Full range of motion. MS/ Extremity: Pulses equal, no cyanosis. Neurovascular intact. Full, normal range of motion. 08:41 Constitutional: The patient appears noted intermittently yawning. bile-colored emesis in bag. 08:41 Abdomen/GI: Inspection: abdomen appears normal, Bowel sounds: normal, Palpation: abdomen is soft and non-tender, in all quadrants. 08:41 Skin: dry. 08:41 Neuro: Orientation: is normal, Mentation: mildly drowsy, Cranial nerves: grossly normal, Motor: moves all extremities symmetrically. 08:44 Chest/axilla: Inspection: port in R chest wall. nh Vital Signs: 08:29 BP 81 / 50; Pulse 94; Resp 18; Pulse Ox 100% on R/A; Weight 62.6 kg; Pain 0/10; ph 09:15 BP 99 / 59; Pulse 91; Resp 14; Temp 97.4; Pulse Ox 100% on R/A; ph 10:18 BP 105 / 58; Pulse 89; Resp 14; Pulse Ox 100% on R/A; ph 11:15 BP 96 / 60; Pulse 82; Resp 18; Pulse Ox 99% on R/A; ph 12:16 BP 91 / 68; Pulse 85; Resp 18; Pulse Ox 100% on R/A; ph MDM: 08:23 Patient medically screened. nh 08:44 Differential Diagnosis: cerebrovascular accident, drug effect, GI bleed, seizure, nh sepsis, transient ischemic attack, vasovagal episode. 11:10 Data reviewed: vital signs, nurses notes, lab test result(s), EKG, radiologic studies. nh Test interpretation: by ED physician or midlevel provider: EKG: HR 93. diffuse non-specific ST-T changes. labs noted for leukocytosis at 38.3. anemia at 9.2/30.4 elevated T. bili at 1.8. elevated alk phos at 153. elevated INR at 1.84. ABG 7.33/29.8/94.5 (mild acidosis) CXR: no acute process. Head CT: no acute process. Response to treatment: the patient's symptoms have mildly improved after treatment. ED course: will admit. awaiting UA. will cover Rocephin IV. will admit for obs.. 10/22 08:25 Order name: Urine Microscopic Only nh 10/22 08:25 Order name: Basic Metabolic Panel; Complete Time: 10:25 nh 10/22 08:25 Order name: BNP; Complete Time: 10:28 wa 04/12 08:25 Order name: CBC with Diff; Complete Time: 10/22 08:25 Order name: CPK; Complete Time: 10/22 08:25 Order name: Hepatic Function; Complete Time: 10/22 08:25 Order name: Lipase; Complete Time: 10/22 08:25 Order name: Magnesium; Complete Time: 10/22 08:25 Order name: Protime (+inr); Complete Time: 10/22 08:25 Order name: Ptt, Activated; Complete Time: 10/22 08:25 Order name: Troponin (emerg Dept Use Only); Complete Time: 10/22 09:19 Order name: Manual Differential; Complete Time: : EDMS 10/22 08:25 Order name: CT Head Brain wo Cont; Complete Time: nh 10/22 08:25 Order name: EKG; Complete Time: 08: nh 10/22 08:25 Order name: Cardiac monitoring; Complete Time: 0810/22 08:25 Order name: EKG - Nurse/Tech; Complete Time: 08: nh 10/22 08:25 Order name: IV Saline Lock; Complete Time: 10/22 08:25 Order name: Labs collected and sent; Complete Time: 08:50 10/22 08:25 Order name: NPO; Complete Time: 08: nh 10/22 08:25 Order name: O2 Per Protocol; Complete Time: 08: nh 10/22 08:25 Order name: O2 Sat Monitoring; Complete Time: 08:10/22 09:20 Order name: Chest Single View XRAY; Complete Time: 10:56 nh 10/22 10:26 Order name: ABG wa Administered Medications: 08:50 Drug: Phenergan 12.5 mg Route: IVP; Site: right antecubital; ph 10:00 Follow up: Response: No adverse reaction; Nausea is decreased ph 12:44 Drug: Rocephin - (cefTRIAXone) 2 grams Route: IVPB; Infused Over: 30 mins; Site: right hb antecubital; 12:44 Follow up: Response: Medication administered at discharge.; IV Status: Completed hb infusion 13:15 Follow up: Response: No adverse reaction; IV Status: Completed infusion ph Disposition: 10/22/17 12:00 Discharged to Home. 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 - Condition is Fair. - Medication Reconciliation Form, Thank You Letter, Antibiotic Education, Prescription Opioid Use form. - Follow up: Private Physician; When: As needed; Reason: [facility] hospice emergency Line for any acute needs . Signatures: Dispatcher [employer] EDBonita Schmitt RN RN Cassandra Grijalva RN RN [facility] Hospital[facility]hemias MD MD nh Katy Perkins MD MD rp3
--- NOTE | 2017-10-22 11:20 | ER ---
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 Transition of care: patient was not received from another setting of care. Onset of symptoms was October 22, 2017. Care prior to arrival: Medication(s) given: Normal saline infusion, 250 mL IV initiated. 20 GA, in the right antecubital area. 08:18 Method Of Arrival: EMS: [facility] ph 08:29 Acuity: RAMONE 2 ph Historical: - Allergies: 08:29 Flagyl; ph - Home Meds: 08:29 aspirin 81 mg Oral chew 1 tab once daily [Active]; Chemo drug three times a month ph [Active]; Levemir 100 unit/mL subcutaneous soln 10 unit nightly [Active]; promethazine 25 mg Oral tab 1 tab every 8 hours [Active]; hydrocodone-acetaminophen 10-325 mg Oral tab 1 tab every 6 hours [Active]; nebivolol \T\ valsartan 5mg/80mg daily [Active]; - Immunization history:: Adult Immunizations unknown. - Social history:: Smoking status: Patient/guardian denies using tobacco. - Family history:: not pertinent. - Hospitalizations: : No recent hospitalization is reported. - History obtained from: EMS. Screenin:30 Abuse screen: Denies threats or abuse. Denies injuries from another. Nutritional ph screening: No deficits noted. Tuberculosis screening: No symptoms or risk factors identified. Fall Risk Fall in past 12 months (25 points). Secondary diagnosis (15 points) TIA, IV access (20 points). Ambulatory Aid- Crutches/Cane/Walker (15 pts). Gait- Weak (10 pts.). Mental Status- Oriented to own ability (0 pts). Total Guzman Fall Scale indicates High Risk Score (45 or more points). Fall prevention measures have been instituted. Side Rails Up X 2 Placed Close to Nursing Station Frequent Obs/Assessments Occuring As available patient and family educated on Fall Prevention Program and Strategies. Assessment: 08:50 General: Appears in no apparent distress. ill, slender, Behavior is calm, cooperative, ph appropriate for age, quiet, Denies fever. Pain: Denies pain. Neuro: Level of Consciousness is awake, alert, obeys commands, Oriented to person, place, situation, Police Patrol Officer are equal bilaterally Speech is normal, Facial symmetry appears normal, Facial symmetry: tongue is midline, Pupils are PERRLA, Denies dizziness, paresthesias numbness. Cardiovascular: Denies chest pain, shortness of breath, Capillary refill < 3 seconds. Respiratory: Airway is patent Respiratory effort is even, unlabored, Denies shortness of breath. GI: Abdomen is distended, noted to have ascites, Reports nausea, vomiting. Derm: Skin is fragile, is thin, with poor turgor Skin is pale. Musculoskeletal: Circulation, motion, and sensation intact. Range of motion: intact in all extremities. 09:16 Reassessment: Patient appears in no apparent distress at this time. Patient and/or ph family updated on plan of care and expected duration. Pain level reassessed. Patient is alert, oriented x 3, equal unlabored respirations, skin warm/dry/pink. Pt resting quietly, denies pain at this time, awaiting lab and CT results at bedside. 10:18 Reassessment: Patient appears in no apparent distress at this time. No changes from ph previously documented assessment. Patient and/or family updated on plan of care and expected duration. Pain level reassessed. 11:15 Reassessment: Patient appears in no apparent distress at this time. Patient and/or ph family updated on plan of care and expected duration. Pain level reassessed. Pt asleep, respirations even and unlabored, awakens easily but remains drowsy, attempted to obtain urine sample, pt states that he is unable to urinate at this time and refuses straight cath. 12:15 Reassessment: Patient appears in no apparent distress at this time. No changes from ph previously documented assessment. Patient and/or family updated on plan of care and expected duration. Pain level reassessed. Pt resting quietly, [employer] nutrition representative at bedside to speak w/ pt and family. Vital Signs: 08:29 BP 81 / 50; Pulse 94; Resp 18; Pulse Ox 100% on R/A; Weight 62.6 kg; Pain 0/10; ph 09:15 BP 99 / 59; Pulse 91; Resp 14; Temp 97.4; Pulse Ox 100% on R/A; ph 10:18 BP 105 / 58; Pulse 89; Resp 14; Pulse Ox 100% on R/A; ph 11:15 BP 96 / 60; Pulse 82; Resp 18; Pulse Ox 99% on R/A; ph 12:16 BP 91 / 68; Pulse 85; Resp 18; Pulse Ox 100% on R/A; ph ED Course: 08:16 Patient arrived in ED. ph 08:17 Bonita Weber, RN is Primary Nurse. ph 08:23 Nehemias Anaya MD is Attending Physician. wa 08:29 Triage completed. ph 08:30 Arm band placed on. ph 08:31 Patient has correct armband on for positive identification. Placed in gown. Bed in low ph position. Call light in reach. Side rails up X2. forest products teacher on. Pulse ox on. NIBP on. Warm blanket given. 08:57 CT completed. Patient tolerated procedure well. Patient moved to CT via stretcher. sj Patient moved back from CT. 08:57 CT Head Brain wo Cont In Process Unspecified. EDMS 09:19 Notified ED physician of a critical lab result(s). WBC 38.3. Dr. Anaya notified. hb 09:20 Notified ED physician of a critical lab result(s). CO2 14. Dr. Anaya notified. hb 09:35 X-ray completed. Portable x-ray completed in exam room. jr1 09:39 Chest Single View XRAY In Process Unspecified. EDMS 11:18 Katy Perkins MD is Hospitalizing Provider. wa 12:45 No provider procedures requiring assistance completed. IV discontinued, intact, hb bleeding controlled, No redness/swelling at site. Pressure dressing applied. Administered Medications: 08:50 Drug: Phenergan 12.5 mg Route: IVP; Site: right antecubital; ph 10:00 Follow up: Response: No adverse reaction; Nausea is decreased ph 12:44 Drug: Rocephin - (cefTRIAXone) 2 grams Route: IVPB; Infused Over: 30 mins; Site: right hb antecubital; 12:44 Follow up: Response: Medication administered at discharge.; IV Status: Completed hb infusion 13:15 Follow up: Response: No adverse reaction; IV Status: Completed infusion ph Outcome: 11:19 Decision to Hospitalize by Provider. nc 12:00 Discharge ordered by MD. romero 12:45 Discharged to home via wheelchair, with family. 12:45 Condition: stable 12:45 Discharge instructions given to patient, family, Instructed on discharge instructions, follow up and referral plans. medication usage, Demonstrated understanding of instructions, follow-up care, medications. 12:46 Patient left the ED. Signatures: Dispatcher [employer] Yanet Salomon Jennifer [facility] Bonita Weber RN RN Cassandra Grijalva RN RN Nehemias Anaya MD MD wa Patel, Ruchita, MD MD rp3
[2017-10-22] MEDS ORDERED: CEFTRIAXONE/SWI 1gm 2 GM/20 ML SYR ONE (12:31)
[2017-10-22 13:05] VITALS: TEMP 97.4
[2017-10-22 13:08] VITALS: BP 91/68; O2SAT 100
--- NOTE | 2017-10-22 15:31 | EKG ---
Test Date: 2017-10-22 Test Time: 08:32:07 [employer] Polisher: SWG MEASUREMENT RESULTS: Intervals: Rate: 93 [place]: 134 QRSD: 80 QT: 392 QTc: 487 Kramer: P: 78 [place]: 134 QRS: 84 T: 31 INTERPRETIVE STATEMENTS: Normal sinus rhythm Nonspecific ST and T wave abnormality Prolonged QT Abnormal ECG Compared to ECG 04/22/2017 16:02:05 ST (T wave) deviation now present Prolonged QT interval now present Electronically Signed On 10-22-17 15:28:58 CDT by Fabian Garza
--- NOTE | 2017-10-22 17:25 | P.CNS ---
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 Who presented to the ED after was found down on the floor by his fatty food. Patient's stated that patient likes to lay on the floor and this time he was on the floor for 3 hr ago when she went to go get him up his speech started slurring and he was not making any sense thus they decided to bring him to the ER here in the hospital. Per patient was "unresponsive" when the EMS arrived. Per the EMS note patient was alert however weak and thus was brought over to the ER for further evaluation. Dr. carranza and from called the was consulted regarding patient's disease process and stated that patient has been rapidly declining since July where he has had elevated leukocytosis and metastasis of the cancer to the surrounding area. Oncologist have offered hospice care to the patient however patient's has been reluctant and had decided to go see another oncologist in [place]. Patient also has a history of seizures per the oncologist however has been noncompliant with his medication upon further questioning the at bedside quite states that patient's seizures are mostly related to the medication and they have been seeing another oncologist in [place] and was trying to restart the chemotherapy once the patient becomes appropriate for chemotherapy. Physical Exam: Constitutional: The patient appears noted intermittently yawning. bile-colored emesis in bag. Abdomen/GI: Abdomen appears normal, BS normal, soft and non-tender and in all quadrant Neuro: AAOx 3, mildly drowsy, CN 2-12 intact, moves all extremities symmetrically. Chest/axilla: Port in R chest wall, RRR and Normal S1/S2 Lab: ABG:pH 7.33 L, pCO2 29.8 L, pO2 94.5, HCO3 15.3 L, Base Excess -9.4, Oxyhemoglobin 94.9, ABG O2 Sat (Measured) 96.8, ABG Carboxyhemoglobin 1.4, ABG Methemoglobin 0.6, Other Total Hgb 8.2 L, Inspired O2 21.0 Cardiac:Rapid Troponin I 0.03, B-Natriuretic Peptide 228 H Coag: PT 21.9 H, INR 1.84, APTT 32.2 CBC: WBC 38.3 H*, RBC 3.09 L, Hgb 9.2 L, Hct 30.4 L, MCV 98.4 D, MCH 29.6, MCHC 30.1 L, RDW 18.8 H, Plt Count 150 L, MPV 11.6 H, Neutrophils % 83.0 H, Lymphocytes % 7.2 L, Monocytes % 4.6, Eosinophils % 4.8 H, Basophils % 0.4, Absolute Neutrophils 31.8 H, Segmented Neutrophils 88 H, Band Neutrophils 1, Absolute Lymphocytes 2.8, Lymphocytes 3 L, Monocytes 4, Absolute Monocytes 1.8 H , Eosinophils 4 H, Absolute Eosinophils 1.8 H, Absolute Basophils 0.2, Toxic Granulation 1+, Poikilocytosis 1+, Anisocytosis 1+, Morphology Comment Noted CMP: Sodium 140, Potassium 4.8, Chloride 114 H, Carbon Dioxide 14 L*, BUN 59 H, Creatinine 3.07 H, Estimated GFR 20 L, Glucose 135 H, Calcium 8.8, Magnesium 2.3 , Total Bilirubin 1.8 H, Direct Bilirubin 0.7 H, AST 52 H, ALT 27, Alkaline Phosphatase 153 H, Creatine Kinase 60, Serum Total Protein 5.7 L, Albumin 2.3 L , Globulin 3.4, Albumin/Globulin Ratio 0.7 L, Lipase 20 L Assessment/Plan 1. Metastatic Disease - 2/2 to Pancreatic CA mets to liver and other surrounding organ. Pt is Rapidly declining and currently is hospice appropriate. and patient had bedside were educated extensively on hospice in the disease process. Question and concerns were all answered in detail at that point family and patient decided to go with hospice care at home with [facility]. Pt was thus discharged from ED to Home.
== END 2017-10-22 12:46 | disposition home or self-care (01) ==
LOC: ER 08:14 → ERHOLD 11:22 → UNDOADMOB 11:22 → ER 12:46
DX: C25.9 Malignant neoplasm of pancreas, unspecified (principal); C78.7 Secondary malignant neoplasm of liver and intrahepatic bile duct; Z79.82 Long term (current) use of aspirin
CPT/HCPCS: 36415; 70450; 71045; 80048; 80076; 82550; 82805; 83690; 83735; 83880; 84484; 85025; 85610; 85730; 93005; 96374; 96375; 99285; J0696; J2550